=== PATIENT | female | born 1990 | race African-American/Black ===

== ENCOUNTER 2021-03-18 19:45 | Emergency (ER) | payer MEDICAID, SELFPAY ==
[~2021-03-18] VITALS: Ht 157.5 cm; Wt 68.0 kg
[2021-03-18 18:19] VITALS: BP 149/84
[~2021-03-18 19:45] MED LIST: PRETAB PO
--- NOTE | 2021-03-18 19:45 | NUR ---
1912- PT MOVED FROM L&D TO ER BED 5
--- NOTE | 2021-03-18 19:45 | NUR ---
PT WAS TRANSFERRED FROM L&D C/O LEG PAIN. PER RN, PT WAS FROM [facility] YESTERDAY C/O METH USE WITHDRAWAL. PT HAD USE METH 3 DAYS AGO. PER MELANI RN, PT IS 27 WEEKS , NOT CONSISTENT WITH HER CARE, AND HAS THOUGHTS OF HURTING HERSELF. PER PT, AFTER ASKING IF SHE HAS SUICIDAL IDEATIONS, SHE STATED "NO, I DON'T HAVE ANY THOUGHTS OF HURTING MYSELF, MY BABY AND OTHERS.PT STATED 8/10 BILATERAL LEG PAIN. PT'S BELONGINGS ARE IN NURSES' STATION, PT IS IN A GOWN, IN LOWEST POSITION. ERMD MADE AWARE OF PT'S CONDITION. G-8 T-4 A-3 L-4 NKA
--- NOTE | 2021-03-18 19:47 | NUR ---
PT STARTED TO GET AGGRESSIVE AFTER EXPLAINING PROTOCOLS OF PATIENTS WITH SI. PT STARTED CUSSING, SHOUTING, AND THREATENING THE NURSES. PT STATES "IF YOU DON'T GIVE ME MY BELONGINGS, YOU'LL SEE WHAT HAPPENS". PT ASKED TO TALK TO CHARGE NURSE, BUT WOULDN'T LISTEN.
--- NOTE | 2021-03-18 19:48 | NUR ---
Dr. Fernandez examining patient.
--- NOTE | 2021-03-18 19:50 | NUR ---
CALLED [facility] GARCIA [facility], DISPATCH WHO STATED THAT POLICE WOULD COME OUT SOON AN OFFICER WAS AVAILABLE
--- NOTE | 2021-03-18 20:03 | NUR ---
[place] [employer] AT BEDSIDE
--- NOTE | 2021-03-18 20:05 | NUR ---
Omero lopez in EDM - 03/18/21 at 2005 by [employer] [employer] AT BEDSIDE.
--- NOTE | 2021-03-18 20:15 | NUR ---
TELEPSYCH INITIATED PER DR. CULLEN
[2021-03-18 20:37] LABS: BASOPHILS % (AUTO) 0.1 % (0.0-2.0); EOSINOPHILS # (AUTO) 0.2 K/uL (0-0.4); EOSINOPHILS % (AUTO) 1.9 % (0.0-4.0); HEMATOCRIT 30.2 % (36-48); HEMOGLOBIN 9.6 g/dL (12.0-16.0); LYMPHOCYTES # (AUTO) 1.8 K/uL (2.5-16.5); LYMPHOCYTES % (AUTO) 14.7 % (20.5-51.1); MEAN CORPUSCULAR HEMOGLOBIN 21 pg (27-31); MEAN CORPUSCULAR HGB CONC 32 g/dL (33-37); MEAN CORPUSCULAR VOLUME 66.1 fL (80-94); MONOCYTES # (AUTO) 0.7 K/uL (0.8-1.0); MONOCYTES % (AUTO) 6.1 % (1.7-9.3); NEUTROPHILS # (AUTO) 9.4 K/uL (1.8-7.7); NEUTROPHILS % (AUTO) 77.2 % (42.2-75.2); PLATELET COUNT (AUTO) 186 K/uL (140-450); RED BLOOD CELL COUNT(AUTO) 4.56 MIL/uL (4.20-5.40); RED CELL DISTRIBUTION WIDTH 16.6 % (11.6-13.7); WHITE BLOOD COUNT (AUTO) 12.2 K/uL (4.8-10.8)
[2021-03-18 20:43] LABS: BARBITURATE, URINE NEGATIVE ng/ml (NEG <=200); BENZODIAZEPINE, URINE NEGATIVE ng/mL (NEG <=200); CANNABINOID, URINE NEGATIVE ng/mL (NEG <=50); COCAINE, URINE NEGATIVE ng/mL (NEG <=300); OPIATE, URINE NEGATIVE ng/mL (NEG <=2000); PHENCYCLIDINE SCREEN,URINE NEGATIVE ng/mL (NEG <=25)
[2021-03-18 20:47] LABS: ALBUMIN 2.5 g/dL (3.4-5.0); ANION GAP 13.4 (8-16); ASPARTATE AMINOTRANSFERASE 23 U/L (15-37); CARBON DIOXIDE 22.4 mmol/L (21-32); CHLORIDE 106 mmol/L (98-107); CREATININE 0.6 mg/dL (0.6-1.3); GFR ARICAN-AMERICAN 149 mL/min (>90); GLUCOSE 160 mg/dL (74-106); POTASSIUM 3.8 mmol/L (3.5-5.1); SODIUM SERUM 138 mmol/L (136-145); TOTAL BILIRUBIN 0.3 mg/dL (0.0-1.0); UREA NITROGEN, BLOOD 5 mg/dL (7-18)
[2021-03-18 20:48] LABS: ACETAMINOPHEN < 0.5 ug/ml (10-30); SALICYLATE < 2.8 mg/dL (2.8-20.0)
--- NOTE | 2021-03-18 21:52 | NUR ---
TELEPSYCH DOCTOR CALLED AND SPOKE WITH PRIMARY MORRIS KAUR
--- NOTE | 2021-03-18 21:59 | NUR ---
TELELIZ DOCTOR SPEAKING WITH PATIENT VIA REMOTE COMMUNICATION
--- NOTE | 2021-03-18 22:14 | NUR ---
TELEPSYCH DOCTOR CALLED BACK AND SPOKE WITH DR. CULLEN
[2021-03-18] MEDS ORDERED: ACET-1195 PO (22:38)
[2021-03-18] MEDS ORDERED: ACET-1194 PO (22:38)
--- NOTE | 2021-03-18 23:30 | NUR ---
Dr. Fernandez at patient bedside
[2021-03-18] MEDS ORDERED: PREN-371 PO (23:33)
[2021-03-18 23:35] VITALS: BP 149/84
--- NOTE | 2021-03-18 23:35 | NUR ---
Patient discharged with v/s stable. Written and verbal after care instructions given and explained. Patient alert, oriented and verbalized understanding of instructions. Ambulatory with steady gait. All questions addressed prior to discharge. ID band removed. Patient advised to follow up with PMD. Rx of ACETAMINOPHEN AND VITAMINS given. Patient educated on indication of medication including possible reaction and side effects. Opportunity to ask questions provided and answered.
== END 2021-03-18 23:35 | disposition home or self-care (01) ==
LOC: U 19:45 → EDSTATUS 19:45 → U 23:35
DX: O26.892 Other specified pregnancy related conditions, second trimester (principal); R25.2 Cramp and spasm; F15.10 Other stimulant abuse, uncomplicated; F17.210 Nicotine dependence, cigarettes, uncomplicated; Z79.899 Other long term (current) drug therapy
CPT/HCPCS: 36415; 59025; 76805; 80053; 80305; 85025; 99284; G0480; G0482

== ENCOUNTER 2023-07-13 02:50 | Emergency (ER) | payer MEDICAID ==
[~2023-07-13] VITALS: Ht 160 cm; Wt 81.6 kg
[~2023-07-13 02:50] MED LIST changes: +ACET-1194 PO; +ACET-1195 PO; +PREN-371 PO
[2023-07-13 02:53] VITALS: BP 140/100; PULSE 120; RESP 24; TEMP 97.4; O2SAT 100
[2023-07-13] MEDS ORDERED: ZIPRASIDONE MESYLATE 20 MG/ML VIAL IM ONE ×2 (02:57→03:10)
[2023-07-13] MEDS ORDERED: LORazepam 2 MG/ML VIAL ONE (02:57)
[2023-07-13] MEDS ORDERED: WATER STERILE 10 ML MC ONE (02:58)
[2023-07-13] MEDS ORDERED: LORazepam 2 MG/ML VIAL IM ONE ×2 (03:10→12:40)
[2023-07-13 04:12] LABS: BASOPHILS # (AUTO) 0.1 K/uL (0.00-0.22); BASOPHILS % (AUTO) 0.5 % (0.0-2.0); EOSINOPHILS # (AUTO) 0.3 K/uL (0-0.4); HEMATOCRIT 30.7 % (36-48); HEMOGLOBIN 9.7 g/dL (12.0-16.0); LYMPHOCYTES % (AUTO) 15.4 % (20.5-51.1); MEAN CORPUSCULAR HEMOGLOBIN 20 pg (27-31); MEAN CORPUSCULAR HGB CONC 32 g/dL (33-37); MEAN CORPUSCULAR VOLUME 63.7 fL (80-94); MONOCYTES # (AUTO) 0.9 K/uL (0.8-1.0); MONOCYTES % (AUTO) 7.2 % (1.7-9.3); NEUTROPHILS # (AUTO) 9.7 K/uL (1.8-7.7); NEUTROPHILS % (AUTO) 74.9 % (42.2-75.2); PLATELET COUNT (AUTO) 312 K/uL (140-450); RED BLOOD CELL COUNT(AUTO) 4.82 MIL/uL (4.20-5.40); RED CELL DISTRIBUTION WIDTH 18.2 % (11.6-13.7)
[2023-07-13 04:35] LABS: ALANINE AMINOTRANSFERASE 35 U/L (12-78); ALBUMIN 1.8 g/dL (3.4-5.0); ALKALINE PHOSPHATASE 120 U/L (50-136); ANION GAP 12.9 (8-16); ASPARTATE AMINOTRANSFERASE 37 U/L (15-37); CALCIUM 7.9 mg/dL (8.5-10.1); CARBON DIOXIDE 23.5 mmol/L (21-32); CHLORIDE 110 mmol/L (98-107); CREATININE 1.2 mg/dL (0.6-1.3); GFR ARICAN-AMERICAN 66 mL/min (>90); GFR NON ARICAN-AMERICAN 54 mL/min (>90); GLUCOSE 120 mg/dL (74-106); POTASSIUM 3.4 mmol/L (3.5-5.1); SODIUM SERUM 143 mmol/L (136-145); TOTAL BILIRUBIN 0.2 mg/dL (0.0-1.0); TOTAL PROTEIN, SERUM 5.8 g/dL (6.4-8.2); UREA NITROGEN, BLOOD 10 mg/dL (7-18)
[2023-07-13 04:39] LABS: ACETAMINOPHEN < 0.5 ug/ml (10-30); SALICYLATE < 2.8 mg/dL (2.8-20.0)
[2023-07-13 04:40] LABS: ALCOHOL, BLOOD < 3 mg/dL (<10)
[2023-07-13 07:15] LABS: AMPHETAMINE, URINE POSITIVE ng/ml (NEG <=1000); BARBITURATE, URINE NEGATIVE ng/ml (NEG <=200); BENZODIAZEPINE, URINE POSITIVE ng/mL (NEG <=200); CANNABINOID, URINE NEGATIVE ng/mL (NEG <=50); COCAINE, URINE NEGATIVE ng/mL (NEG <=300); OPIATE, URINE NEGATIVE ng/mL (NEG <=2000); PHENCYCLIDINE SCREEN,URINE NEGATIVE ng/mL (NEG <=25)
[2023-07-13] MEDS ORDERED: HALOPERIDOL IM 5 MG/ML VIAL IM ONE (12:40)
[2023-07-13 16:21] VITALS: BP 165/94; PULSE 96; RESP 17; TEMP 98.1; O2SAT 98
== END 2023-07-13 16:21 ==
LOC: MED 02:50
DX: F23 Brief psychotic disorder (principal); Z20.822 Contact with and (suspected) exposure to COVID-19; V49.88XA Car occupant (driver) (passenger) injured in other specified transport accidents, initial encounter; Y93.89 Activity, other specified; Y92.89 Other specified places as the place of occurrence of the external cause; Y99.8 Other external cause status
CPT/HCPCS: 36415; 71045; 80053; 80305; 85025; 87426; 87635; 96372; 99291; C9803; G0480; G0482; J1630; J2060; J3486; Q0092

== ENCOUNTER 2023-08-09 22:32 | Emergency (ER) | payer MEDICAID, OTHER ==
[~2023-08-09] VITALS: Ht 162.6 cm; Wt 70.8 kg
[2023-08-09 22:41] VITALS: BP 164/106; PULSE 86; RESP 16; TEMP 97.1; O2SAT 98
[2023-08-10] MEDS ORDERED: ACETAMINOPHEN EXTRA STRENGTH 500 MG TAB PO ONE (00:05)
[2023-08-10 00:25] VITALS: BP 136/106; PULSE 86; RESP 16; TEMP 97.1; O2SAT 98
== END 2023-08-10 00:25 | disposition home or self-care (01) ==
LOC: MED 22:32
DX: Z00.00 Encounter for general adult medical examination without abnormal findings (principal); O90.89 Other complications of the puerperium, not elsewhere classified; Z98.890 Other specified postprocedural states; Z79.899 Other long term (current) drug therapy
CPT/HCPCS: 99283

== ENCOUNTER 2023-10-18 05:47 | Emergency (ER) | payer MEDICAID ==
[~2023-10-18] VITALS: Ht 160 cm; Wt 68.0 kg
[2023-10-18 06:02] VITALS: BP 138/74; PULSE 76; RESP 16; TEMP 97.5; O2SAT 100
[2023-10-18] MEDS ORDERED: LIDOCAINE 5% 1 EA PATCH TP ONE ×2 (06:28→06:30)
[2023-10-18] MEDS ORDERED: LIDO1ADH19 TP (06:39)
[2023-10-18] MEDS ORDERED: LABE100T11 PO (07:36)
== END 2023-10-18 06:42 | disposition home or self-care (01) ==
LOC: MED 05:47
DX: S16.1XXA Strain of muscle, fascia and tendon at neck level, initial encounter (principal); X58.XXXA Exposure to other specified factors, initial encounter; Y93.89 Activity, other specified; Y92.89 Other specified places as the place of occurrence of the external cause; Y99.8 Other external cause status
CPT/HCPCS: 20553; 99283; 99284

== ENCOUNTER 2023-11-12 02:59 | Emergency (ER) | payer MEDICAID ==
[~2023-11-12] VITALS: Ht 160 cm; Wt 63.5 kg
[~2023-11-12 02:59] MED LIST changes: +LABE100T11 PO; +LIDO1ADH19 TP
[2023-11-12 03:00] VITALS: BP 141/100; PULSE 66; RESP 17; TEMP 97.8; O2SAT 98
[2023-11-12 03:22] VITALS: O2SAT 98
[2023-11-12] MEDS ORDERED: ACET-2619 PO (04:13)
[2023-11-12] MEDS ORDERED: IBUP-2213 PO (04:13)
[2023-11-12] MEDS ORDERED: IBUPROFEN 600 MG TAB PO ONE (04:15)
== END 2023-11-12 05:42 | disposition home or self-care (01) ==
LOC: MED 02:59
DX: M25.512 Pain in left shoulder (principal); R05.9 Cough, unspecified; Z79.899 Other long term (current) drug therapy
CPT/HCPCS: 99283